=== PATIENT | male | born 1960 | race Caucasian/White ===

== ENCOUNTER 2017-04-24 17:19 | Inpatient (IN) ==
[2017-04-24] MEDS ORDERED: SODIUM CHLORIDE 0.9% 2,000 ML IV STA (18:26)
[2017-04-24] MEDS ORDERED: SODIUM CHLORIDE 0.9% 3,000 ML IV ONE (18:27)
[2017-04-24] MEDS ORDERED: CEFEPIME 2,000 MG in SODIUM CHLORIDE 0.9% 100 ML IV STA (18:29)
[2017-04-24] MEDS ORDERED: VANCOMYCIN INJ 1,000 MG in SODIUM CHLORIDE 0.9% 250 ML IV STA (18:30)
[2017-04-24] MEDS ORDERED: CEFEPIME 2,000 MG VIAL ONE (18:32)
[2017-04-24 18:33] LABS: Basophils % 0.2 % (0.0-0.8); Eosinophils # 1.2 10*3/uL (0.0-0.87); Eosinophils % 6.3 % (0.00-10.9); Hemoglobin 15.8 GM/DL (14.0-18.0); Immature Granulocytes % 0.7 %; Immature Granulocytes Absolute 0.14 #; Lymphocytes % 4.9 % (21.2-54.2); Mean Corpuscular HGB Conc 33.6 GM/DL (32-36); Mean Corpuscular Hemoglobin 31 PG (27-34); Mean Corpuscular Volume 92.3 FL (87-102); Mean Platelet Volume 10.9 FL (9.6-12.0); Monocytes # 2.5 10*3/uL (0.11-0.8); Monocytes % 12.8 % (1.7-12.7); Neutrophils # 14.8 10*3/uL (1.4-7.4); Neutrophils % 75.1 % (38.7-73.9); Platelet Count 251 T/CUMM (130-400); Red Blood Count 5.09 MC/CUMM (3.8-5.5); Red Cell Distribution Width 13.2 % (9.3-17.3); White Blood Count 19.7 T/CUMM (4-12)
[2017-04-24 18:54] LABS: Albumin 4.1 G/DL (3.4-5.0); Bilirubin,Total 0.5 MG/DL (0.2-1.0); Calcium 8.3 MG/DL (8.5-10.1); Osmolality,Calculated 278.7 MOS/KG (273-304); Potassium 3.7 MMOL/L (3.5-5.1); Total Protein 6.8 G/DL (6.4-8.3)
[2017-04-24 18:59] LABS: Eosinophils 6 % (0-10); Lymphocytes 6 % (20-55); Platelet Estimate Normal; Segmented Neutrophils 79 % (50-85); Total Cells Counted 100
[2017-04-24 19:58] LABS: Lactic Acid 2.3 MMOL/L (0.4-2.0)
[2017-04-24] MEDS ORDERED: VANCOMYCIN 1,000 MG VIAL ONE (20:08)
[2017-04-24 20:30] LABS: Apearance,Urine CLEAR (Clear); Bilirubin,Urine Negative (Negative); Blood, Urine Negative (Negative); Glucose,Urine (UA) Negative (Negative); Hyaline Casts,Urine 1 /LPF (0-3); Ketones,Urine Negative (Negative); Mucus,Urine Few /LPF (Occasional); Nitrite,Urine Negative (Negative); Protein,Urine Negative; RBC,Urine 1 /HPF (0-4); Squamous Epithelial Cell,Urine Occasional /HPF (0-10); Urine Color Yellow (Yellow); Urine Specific Gravity 1.046 (1.001-1.035); Urine Urobilinogen < 2.0 EU/DL (0.2-1.0); WBC,Urine 1 /HPF (0-6)
[2017-04-24] MEDS ORDERED: ACETAMINOPHEN 325 MG TABLET PO PRN (20:42)
[2017-04-24] MEDS ORDERED: ONDANSETRON 4 MG/2 ML VIAL IV PRN (20:42)
[2017-04-24 20:44] LABS: Barbiturates Screen,Urine Negative (Negative); Benzodiazepines Screen,Urine Negative (Negative); Cannabinoid Screen,Urine Negative (Negative); Opiate Screen,Urine Negative (Negative); Phencyclidine Screen,Urine Negative (Negative)
[2017-04-24] MEDS ORDERED: PIPERACILLIN/TAZOBACTAM 3,375 MG in SODIUM CHLORIDE 0.9% 100 ML IV SCH (23:30)
[2017-04-24] MEDS: DEXTROSE 5% NACL 0.9% 1,000 ML IV SCH (23:36)
[2017-04-24] MEDS: methylPREDNISolone SOD SUC 40 MG/1 ML VIAL IV SCH (23:37)
[2017-04-24] MEDS: FAMOTIDINE 20 MG TABLET PO SCH (23:37)
[2017-04-24] MEDS: CETIRIZINE 10 MG TABLET PO SCH (23:37)
[2017-04-25] MEDS ORDERED: hydrOXYzine HCL 25 MG TABLET PO PRN (05:05)
[2017-04-25 05:32] LABS: Basophils % 0.1 % (0.0-0.8); Eosinophils # 0.9 10*3/uL (0.0-0.87); Hematocrit 42.4 VOL% (42.0-52.0); Hemoglobin 14.6 GM/DL (14.0-18.0); Immature Granulocytes Absolute 0.18 #; Lymphocytes # 0.7 10*3/uL (1.4-4.0); Lymphocytes % 3.7 % (21.2-54.2); Mean Corpuscular HGB Conc 34.4 GM/DL (32-36); Mean Corpuscular Hemoglobin 31 PG (27-34); Mean Platelet Volume 11.3 FL (9.6-12.0); Monocytes # 1.2 10*3/uL (0.11-0.8); Monocytes % 6.5 % (1.7-12.7); Neutrophils # 15.3 10*3/uL (1.4-7.4); Neutrophils % 83.7 % (38.7-73.9); Platelet Count 234 T/CUMM (130-400); Red Blood Count 4.71 MC/CUMM (3.8-5.5); Red Cell Distribution Width 13.2 % (9.3-17.3); White Blood Count 18.2 T/CUMM (4-12)
[2017-04-25 05:55] LABS: Band Neutrophils 5 % (0-10); Eosinophils 4 % (0-10); Giant Platelets Few; Hypochromasia 1+; Lymphocytes 3 % (20-55); Ovalocytes Slight; Platelet Estimate Adequate; Segmented Neutrophils 84 % (50-85); Total Cells Counted 100
[2017-04-25 06:02] LABS: Calcium 7.6 MG/DL (8.5-10.1); Osmolality,Calculated 279.7 MOS/KG (273-304); Potassium 4.5 MMOL/L (3.5-5.1)
[2017-04-25] MEDS: methylPREDNISolone SOD SUC 40 MG/1 ML VIAL IV SCH ×3 (06:51→23:50)
[2017-04-25] MEDS: DEXTROSE 5% NACL 0.9% 1,000 ML IV SCH ×3 (07:37→20:01)
[2017-04-25] MEDS: PANTOPRAZOLE 40 MG TABLET PO SCH (08:40)
[2017-04-25] MEDS: CETIRIZINE 10 MG TABLET PO SCH (08:40)
[2017-04-25] MEDS: ASPIRIN EC 81 MG TABLET PO SCH (08:40)
[2017-04-25] MEDS: diphenhydrAMINE CAP 25 MG CAPSULE PO SCH ×5 (08:40→23:52)
[2017-04-25] MEDS: FAMOTIDINE 20 MG TABLET PO SCH ×2 (08:40→21:13)
[2017-04-25] MEDS ORDERED: PIPERACILLIN/TAZOBACTAM 3,375 MG in SODIUM CHLORIDE 0.9% 100 ML IV SCH (09:00)
[2017-04-25] MEDS: AMPICILLIN/SULBACTAM 1,500 MG in SODIUM CHLORIDE 0.9% 100 ML IV SCH ×3 (12:48→23:52)
[2017-04-26] MEDS: DEXTROSE 5% NACL 0.9% 1,000 ML IV SCH (05:02)
[2017-04-26] MEDS: diphenhydrAMINE CAP 25 MG CAPSULE PO SCH ×3 (06:08→11:40)
[2017-04-26] MEDS: methylPREDNISolone SOD SUC 40 MG/1 ML VIAL IV SCH (06:09)
[2017-04-26] MEDS: AMPICILLIN/SULBACTAM 1,500 MG in SODIUM CHLORIDE 0.9% 100 ML IV SCH ×2 (06:12→11:43)
[2017-04-26] MEDS: FAMOTIDINE 20 MG TABLET PO SCH (08:36)
[2017-04-26] MEDS: CETIRIZINE 10 MG TABLET PO SCH (08:36)
[2017-04-26] MEDS: PANTOPRAZOLE 40 MG TABLET PO SCH (08:36)
[2017-04-26] MEDS: ASPIRIN EC 81 MG TABLET PO SCH (08:36)
[2017-04-26 12:13] VITALS: BP 141/74
== END 2017-04-26 14:08 | disposition home or self-care (01) | DRG 312 ==
LOC: N.ED 17:19 → N.EDINP 20:42 → N.TELEN 20:58
PROVIDERS: ADMIT Family Medicine; ATTEND Family Medicine